=== PATIENT | male | born 1985 | race Caucasian/White ===

== ENCOUNTER 2018-06-29 23:26 | Emergency (ER) | payer MEDICARE, MEDICAID ==
[~2018-06-29] VITALS: Ht 185.4 cm; Wt 95.0 kg
[2018-06-29 23:29] VITALS: BP 125/89
== END 2018-06-30 00:02 | disposition left against medical advice (07) ==
LOC: ER 23:59
DX: M79.672 Pain in left foot (principal); M79.671 Pain in right foot; J45.909 Unspecified asthma, uncomplicated; F17.200 Nicotine dependence, unspecified, uncomplicated; Z85.47 Personal history of malignant neoplasm of testis; Z53.21 Procedure and treatment not carried out due to patient leaving prior to being seen by health care provider